=== PATIENT | female | born 1970 | race Caucasian/White ===

== ENCOUNTER 2020-05-11 14:10 | Emergency (ER) | payer MEDICAID, SELFPAY ==
[2020-05-11] VITALS (52 sets, daily range): BP systolic 116–131; BP diastolic 63–77; PULSE 77–86; RESP 11–25; TEMP 36.3–36.8; O2SAT 91–98
--- NOTE | 2020-05-11 14:00 | RT.EKG_ITS ---
APPROVED REPORT Exam: Resting ECG Patient Location: E HR:81 bpm ECG Measurements Heart Rate 81 AXIS DE 145 P 39 QRSd 91 QRS 66 QT 378 T 22 QTc 438 Conclusion Sinus rhythm...normal P axis, V-rate 60- 99
--- NOTE | 2020-05-11 14:22 | W.ED.GENAD ---
Discharge Plan Disposition Patient Disposition: HOME Condition: Improving Discharge Details Clinical Impression: Muscle spasms of neck Primary Care Provider: Jessenia Ramirez ED Provider: Claude Jorge Home Meds and New Rx's Prescriptions: Continued COVID-19 vacc,mRNA(Moderna)-PF 100 mcg/0.5 mL suspension 0.5 ml IM ONCE Qty: 0.5 RF: 0 escitalopram oxalate [Lexapro] 20 mg Tablet 40 mg PO DAILY RF: 0 Discharge Instructions Additional Instructions: Home to rest today. Continue to liberally hydrate with small, frequent sips of fluids. Provided Valium 2 mg every 6 hours if needed for spasm. Return to the ER for any acute concerns. May provide gentle massage to the area and it may respond to both heat and cold therapy. Medical Decision Making 49-year-old female presents from home via EMS with the abrupt onset above midday of intermittent right-sided neck spasms that seem to shoot to my eye. She is not had a rash. She did not injure herself and she has not recently been ill. She arrives to the ER improved following fentanyl in the ambulance with a temp of 36, blood pressure 126/77 with a pulse of 86. Differential diagnosis includes spasm, trigeminal neuralgia, atypical migraine, less likely intracranial mass or hemorrhage. Patient had IV access established, screening labs obtained, given a fluid bolus, magnesium, ketorolac, and 1 mg Ativan. HPI General Mode of arrival: EMS. Date/Time Provider Initiated Documentation: 05/11/20 14:11. Limitations to Documentation: no limitations. Information obtained by: patient and EMS. History of Present Illness 49 year old F presents to the emergency department with the chief complaint of Right-sided neck pain and spasm, described as moderate, Quality is described as stabbing, and is localized to the neck and right. Patient reports no radiation. Patient started experiencing this hour(s) and it has been constant. No relieving factors improve symptom(s), No exacerbating factors reported . Patient notes denies fever/chills, headaches, nausea/vomiting, rash and syncope. Patient did receive the following treatments prior to arrival, none Related Data Home Medications Medication Instructions Recorded Confirmed escitalopram oxalate [Lexapro] 40 mg PO DAILY 05/11/20 05/11/20 Allergies Allergy/AdvReac Type Severity Reaction Status Date / Time diphenhydramine Allergy Unverified 05/11/20 14:20 metoclopramide [From Reglan] Allergy Unverified 05/11/20 14:20 pneumococcal vaccine Allergy Unverified 05/11/20 14:20 prochlorperazine Allergy Unverified 05/11/20 14:25 [From Compazine] fluticasone AdvReac Headache Unverified 05/11/20 14:20 [From Advair Diskus] salmeterol AdvReac Headache Unverified 05/11/20 14:20 [From Advair Diskus] General Stated Complaint: Headache ARIA: 2 Review of Systems Narrative: No fever, no chills, no rash, no fall or injury. 6 systems reviewed and otherwise negative [facility] Social History Smoking/Tobacco Use Status: Former Tobacco Use Quit Date: 03/30/08 Smoking risk assessment performed?: Yes Alcohol Intake: never Substance use type: does not use Do you feel safe at home: Yes Do you feel safe in your relationship?: Yes Exam Narrative Exam Narrative: GEN: awake, alert, oriented 3. Pleasant, well groomed, interactive. HEAD: Normocephalic, atraumatic ENT: Mucous membranes moist, oropharynx unremarkable, External ear exam unremarkable EYES: PERRL, EOMI NECK: Full ROM, no meningismus. Right sternocleidomastoid spasm and tenderness CHEST/RESP: Nontender, clear to auscultation bilateral, no wheeze/rhonchi/rales CARDIOVASCULAR: RRR, no murmur, rub kg. 2+ Rad pulse bilateral ABDOMEN: Soft, nontender, no mass. +Bowel sounds EXT: Full ROM, no edema, no rash Neuro: Grossly normal neurologic exam, conversant, interactive. Psych: Speech fluent, thoughts congruent, affect normal Course Vital Signs Vital signs: Vital Signs Temperature 36.3 C L 05/11/20 14:09 Pulse 86 05/11/20 14:09 Respiratory Rate 14 05/11/20 14:09 Blood Pressure 126/77 05/11/20 14:09 Pulse Oximetry 96 05/11/20 14:09 Temperature 36.3 C L 05/11/20 14:09 Temperature Source Skin 05/11/20 14:09 Pulse 86 05/11/20 14:09 Respiratory Rate 14 05/11/20 14:09 Blood Pressure 126/77 05/11/20 14:09 Blood Pressure Position Supine 05/11/20 14:09 Pulse Oximetry 96 05/11/20 14:09 Oxygen Delivery Method Room Air 05/11/20 14:09 Oxygen Flow Rate 0 05/11/20 14:09 Pain Level 5 05/11/20 14:09
[2020-05-11 14:39] LABS: Abs Immature Grans 0.02 10^3/uL (0.0-0.06); Absolute Basophil Count 0.04 10^3/uL (0.0-0.2); Absolute Eosinophil Count 0.14 10^3/uL (0.0-0.7); Absolute Lymphocyte Count 1.94 10^3/uL (1.2-3.4); Absolute Monocyte Count 0.48 10^3/uL (0.1-0.8); Absolute Neutrophil Count 4.52 10^3/uL (1.2-6.7); Basophils % 0.6; HCT 39.4 % (36.0-46.0); HGB 12.6 g/dL (11.2-15.7); Immature Grans % 0.3; Lymphocytes % 27.2; MCH 26.7 pg (27.0-33.0); MCV 83.5 fL (80-95); MPV 8.9 fL (8.0-11.0); Monocytes % 6.7; Neutrophils % 63.2; Nucleated RBC 0 %; Platelet Count 281 10^3/uL (130-400); RBC 4.72 10^6/uL (3.93-5.22); RDW-SD 42.7 fL; WBC 7.14 10^3/uL (4.4-10.8)
[2020-05-11 14:46] LABS: Anion Gap 8.6 mmol/L (3-11); BUN 18 mg/dL (7-18); CO2 26.4 mmol/L (21.0-32.0); CREATININE 0.7 mg/dL (0.55-1.02); Chloride 105 mmol/L (98-107); Glucose 111 mg/dL (74-106); Potassium 4.2 mmol/L (3.5-5.1); Sodium 140 mmol/L (136-145)
[2020-05-11] MEDS: Ketorolac 30 MG/ML VIAL IVP (14:53)
[2020-05-11] MEDS: LORazepam 2 MG/ML VIAL 1 MG IVP (14:56)
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
[2020-05-11] MEDS: Normal Saline 1,000 ML 1000 ML IV (15:09)
[2020-05-11] MEDS: MAGNESIUM SULFATE 1 GM/100 ML BAG IVPB (15:10)
[2020-05-11] MEDS: Ondansetron 4 MG/2 ML VIAL IVP (15:28)
[2020-05-11] MEDS: diazePAM 10 MG/2 ML SYR 5 MG IVP (16:25)
[2020-05-11] MEDS: diazePAM 2 MG TAB PO (17:54)
== END 2020-05-11 18:04 | disposition home or self-care (01) ==
PROVIDERS: Emergency Provider Emergency Medicine; PCP Family Medicine
DX: G24.3 Spasmodic torticollis (principal)
CPT/HCPCS: 36415; 80048; 93005; 96361; 96365; 96375; 99285; 70450; 85025; 93010; 99284; J1885; J2060; J2405; J3360; J3475

== ENCOUNTER 2022-03-21 21:26 | Emergency (ER) | payer MEDICAID, SELFPAY ==
[2022-03-21 21:25] VITALS: BP 171/94; PULSE 80; RESP 18; TEMP 36.4; O2SAT 99
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
[2022-03-21 22:07] LABS: Abs Immature Grans 0.02 10^3/uL (0.0-0.06); Absolute Basophil Count 0.02 10^3/uL (0.0-0.2); Absolute Eosinophil Count 0.07 10^3/uL (0.0-0.7); Absolute Monocyte Count 0.41 10^3/uL (0.1-0.8); Absolute Neutrophil Count 2.93 10^3/uL (1.2-6.7); Basophils % 0.4; Eosinophils % 1.3; HGB 11.6 g/dL (11.2-15.7); Immature Grans % 0.4; Lymphocytes % 37.8; MCH 24.6 pg (27.0-33.0); MCHC 31.4 % (32.0-36.0); MCV 79 fL (80-95); MPV 9.8 fL (8.0-11.0); Monocytes % 7.4; Neutrophils % 52.7; Platelet Count 343 10^3/uL (130-400); RBC 4.71 10^6/uL (3.93-5.22); RDW 15.4 % (11.7-14.6); RDW-SD 44.2 fL; WBC 5.55 10^3/uL (4.4-10.8)
[2022-03-21] MEDS: fentaNYL 100 MCG/2 ML VIAL 50 MCG IVP (22:13)
[2022-03-21] MEDS: ACETAMINOPHEN 1,000 MG/100 ML BTL 400 MG IVPB (22:13)
[2022-03-21 22:21] LABS: ALT 53 U/L (14-59); AST 31 U/L (15-37); Albumin 4.1 g/dL (3.4-5.0); Alkaline Phosphatase 92 U/L (46-116); Anion Gap 10.9 mmol/L (3-11); BUN 13 mg/dL (7-18); Bilirubin, Total 0.2 mg/dL (0.2-1.0); CO2 27.1 mmol/L (21.0-32.0); CREATININE 0.7 mg/dL (0.55-1.02); Chloride 103 mmol/L (98-107); Estimated GFR 103.35 (mL/min/1.73m2); Glucose 134 mg/dL (74-106); Sodium 141 mmol/L (136-145); Total Protein 7.9 g/dL (6.4-8.2)
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
[2022-03-21 22:25] LABS: Potassium 2.7 mmol/L (3.5-5.1)
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
--- NOTE | 2022-03-21 22:49 | NUR.NOTE ---
Nursing Note: C-collar removed per doc
[2022-03-21 23:12] VITALS: BP 146/80; PULSE 81; RESP 16; O2SAT 97
== END 2022-03-21 23:47 | disposition home or self-care (01) ==
PROVIDERS: Emergency Provider Emergency Medicine; PCP Family Medicine
DX: S30.1XXA Contusion of abdominal wall, initial encounter (principal); V47.6XXA Car passenger injured in collision with fixed or stationary object in traffic accident, initial encounter; Y92.410 Unspecified street and highway as the place of occurrence of the external cause
CPT/HCPCS: 73562; 74177; 80053; 96374; 96375; 99285; 71260; 72125; 85025; 99284; J0131; J3010

== ENCOUNTER 2022-08-12 11:57 | Emergency (ER) | payer OTHER, SELFPAY ==
[2022-08-12] VITALS (19 sets, daily range): BP systolic 166–192; BP diastolic 89–105; PULSE 73–82; RESP 15–20; TEMP 37.1; O2SAT 97–98
--- NOTE | 2022-08-12 12:30 | DI.RAD_ITS ---
Exam(s) XR KNEE LT 4V AP,LAT,CHAKA,PAT EXAM: XR KNEE LT 4V AP,LAT,CHAKA,PAT CLINICAL HISTORY: pain, injury. TECHNIQUE: 2D digital imaging was performed of the left knee. Four images were obtained. Merchant, AP, lateral and PA tunnel views were obtained. COMPARISON: CR,XR XR KNEE LT 3V AP,LAT,CHAKA from 03/21/2022 FINDINGS: BONES: No acute fracture is present. No bony destructive lesion is seen. JOINTS: The knee is normally aligned. No joint effusion is seen. SOFT TISSUE: Normal. IMPRESSION: Normal radiographs of the left knee. DATA REPOSITORY: RADIATION DOSE DELIVERED:
--- NOTE | 2022-08-12 13:15 | RT.EKG_ITS ---
APPROVED REPORT Exam: Resting ECG Reason for Exam: ? syncope, dizzy Patient Location: E HR:77 bpm ECG Measurements Heart Rate 77 AXIS MT 130 P 9 QRSd 93 QRS 68 QT 413 T 46 QTc 468 Conclusion Sinus rhythm...normal P axis, V-rate 60- 99
[2022-08-12 13:50] LABS: Abs Immature Grans 0.01 10^3/uL (0.0-0.06); Absolute Basophil Count 0.02 10^3/uL (0.0-0.2); Absolute Lymphocyte Count 2.02 10^3/uL (1.2-3.4); Absolute Monocyte Count 0.37 10^3/uL (0.1-0.8); Absolute Neutrophil Count 2.62 10^3/uL (1.2-6.7); Basophils % 0.4; Eosinophils % 1.9; HCT 33.8 % (36.0-46.0); HGB 10.5 g/dL (11.2-15.7); Immature Grans % 0.2; Lymphocytes % 39.3; MCH 24.2 pg (27.0-33.0); MCHC 31.1 % (32.0-36.0); MCV 78 fL (80-95); MPV 8.6 fL (8.0-11.0); Monocytes % 7.2; Platelet Count 293 10^3/uL (130-400); RBC 4.33 10^6/uL (3.93-5.22); RDW 16.3 % (11.7-14.6); RDW-SD 46.8 fL; WBC 5.14 10^3/uL (4.4-10.8)
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
[2022-08-12 14:24] LABS: ALT 44 U/L (14-59); AST 42 U/L (15-37); Albumin 3.5 g/dL (3.4-5.0); Alkaline Phosphatase 73 U/L (46-116); BUN 9 mg/dL (7-18); Bilirubin, Total 0.3 mg/dL (0.2-1.0); CREATININE 0.7 mg/dL (0.55-1.02); Calcium 8.8 mg/dL (8.5-10.1); Chloride 104 mmol/L (98-107); Estimated GFR 103.35 (mL/min/1.73m2); Glucose 114 mg/dL (74-106); Magnesium 1.9 mg/dL (1.8-2.4); Potassium 3.4 mmol/L (3.5-5.1); Sodium 138 mmol/L (136-145); TSH (W/Ref FT4) 1.52 uIU/mL (0.36-3.74); Total Protein 7.1 g/dL (6.4-8.2); Troponin I < 50 ng/L (<or=60)
--- NOTE | 2022-08-12 16:00 | DI.CT_ITS ---
Exam(s) CT HEAD WO EXAM: CT HEAD WO CLINICAL HISTORY: headache, HTN. TECHNIQUE: Imaging Protocol: Axial computed tomography images with coronal and sagittal reformatted images were created and reviewed COMPARISON: CT CT HEAD WO from 05/11/2020 FINDINGS: Ventricles and Extra axial spaces: Normal in size and morphology for the patient's age. Hemorrhage: None. Cerebral parenchyma: No evidence of an acute territorial infarct. There are old lacunar infarcts in the basal ganglia bilaterally. Midline shift: None. Brainstem/Cerebellum: Normal. Calvarium: Normal. Visualized Paranasal sinuses/Mastoids: Clear. Soft Tissues: Unremarkable. IMPRESSION: 1. No acute intracranial process. 2. Findings were discussed with the emergency department at 5:06 p.m. on 08/12/2022. RADIATION DOSE DELIVERED: 777.55mGy.cm Total DLP DATA REPOSITORY: All CT scans at this facility are submitted to the National Radiology Data Registry (NRDR) Dose Index Registry (DIR) with the [employer] (ACR). RADIATION OPTIMIZATION: All CT scans at this facility use at least one of these dose optimization te chniques: automated exposure control; mA and/or kV adjustment per patient size (includes targeted exa ms where dose is matched to clinical indication); or iterative reconstruction.
--- NOTE | 2022-08-12 16:15 | RT.EKG_ITS ---
APPROVED REPORT Exam: Resting ECG Reason for Exam: chest pain Patient Location: E HR:75 bpm ECG Measurements Heart Rate 75 AXIS NJ 129 P 4 QRSd 91 QRS 49 QT 414 T 21 QTc 462 Conclusion Sinus rhythm...normal P axis, V-rate 60- 99 Low voltage, precordial leads...precordial leads <1.0mV
[2022-08-12 16:31] LABS: Troponin I < 50 ng/L (<or=60)
[2022-08-12] MEDS: traMADol 50 MG TAB PO (16:41)
[2022-08-12] MEDS: Ibuprofen 400 MG TAB PO (16:43)
[2022-08-12] MEDS: Lisinopril 10 MG TAB PO (16:57)
--- NOTE | 2022-08-12 17:26 | W.EDPROG ---
Date of service: 08/12/22 Time of Service: 17:15 Medical Decision Making Patient signed out to me pending monitor blood pressure due to hypertension and overall reassessment. Patient chief complaint of right knee injury but also been having dizzy spells. Report received that patient had negative CT imaging of head and second troponin negative along with work-up otherwise being nondiagnostic. 1814-reassessed patient and patient still states anxiety. Rechecked her blood pressure manually and was still 190/95. Discussed with patient potential syncopal episode was secondary to hypertensive emergency but also considered would be severe acute knee pain. Patient at this time does not want to be admitted for further observation for her hypertension. We will try 5 mg of amlodipine and monitor patient. 2029-reassessed patient again and patient states that she is feeling better now. Blood pressure now 170/90. Given initial pressure of 200/100 or higher I do feel this is an appropriate reduction in the short-term. We will place patient on 5 mg amlodipine and placed patient on urgent follow-up with primary care provider preferably in the next 2 to 3 days. After discussion of diagnosis and plan of care patient has no further needs, questions, or concerns and states clear understanding to return to the emergency department for any worsening symptoms. This documentation was generated using [employer] dictation system, please disregard any oddities of phrase or misspellings. Exam Const General: cooperative, no acute distress and not ill appearing Orientation: alert, awake and oriented x3 HENMT Mouth: moist mucous membranes Resp Effort & Inspection: normal respiratory effort, able to speak in complete sentences and no respiratory distress Cardio Rate: regular rate Rhythm: regular rhythm Heart Sounds: S1 normal and S2 normal Pulses: normal peripheral pulses Skin General skin exam: no rashes or lesions noted Neuro General: patient alert, patient awake, patient oriented x3, moves all extremities and no focal motor deficits Sensory Exam: no sensory deficits noted Sign Out Sign Out Data: Sign Out Comment: Follow-up repeat BP post lisinopril. Reassess patient for disposition. If improved and asymptomatic, consider discharge on lisinopril. Last updated by Bennett Savage MD at 08/12/22 17:19 Discharge Plan Disposition Patient Disposition: Home Condition: Improving Discharge Details Clinical Impression: Anemia, Dizziness, Injury of right knee, Hypertensive emergency Primary Care Provider: Jessenia Ramirez ED Provider: Eris Alfaro Home Meds and New Rx's Prescriptions: New amlodipine 5 mg tablet 5 mg PO DAILY Qty: 20 0RF Continued COVID-19 vacc,mRNA(Moderna)-PF 100 mcg/0.5 mL suspension 0.5 ml IM ONCE Qty: 0.5 0RF lidocaine [Lidoderm] 5 % adhesive patch,medicated 1 patch topical DAILY PRNQty: 15 0RF Rx Instructions: leave on most painful area for up to 12 hrs acetaminophen 500 mg Tablet 1,000 mg PO Q8H lorazepam 0.5 mg tablet 0.5 mg PO QHS Patient Comments: TAKE 1-2 TABLETS BY MOUTH EVERY EVENING AT BEDTIME IF NEEDED trazodone 150 mg tablet 150 mg PO QHS Patient Comments: take 1 tablet by mouth once daily at bedtime omeprazole 20 mg capsule,delayed release(DR/EC) 20 mg PO DAILY Patient Comments: take 1 capsule by mouth every evening ibuprofen 600 mg Tablet 600 mg PO Q8H bupropion HCl 150 mg tablet extended release 24 hr 150 mg PO DAILY Patient Comments: take 1 tablet by mouth daily aripiprazole 2 mg tablet 2 mg PO DAILY Patient Comments: take 1 tablet by mouth once daily cyclobenzaprine 10 mg tablet 10 mg PO DAILY escitalopram oxalate [Lexapro] 20 mg Tablet 40 mg PO DAILY Discharge Instructions Instructions: Swollen Knee Joint (ED), Hypertension (ED), Anemia (ED) Additional Instructions: Please keep your follow-up appointment with orthopedics for further evaluation of your knee pain. Given you did have significant hypertension today we are starting you on a blood pressure medication. Please take this daily and follow-up with primary care provider preferably the next 2 to 3 days for reassessment of your blood pressure. If you have any new or significant worsening of symptoms return immediately to the emergency department for recheck. Stand Alone Forms: Work Release Referrals: Primary Care Provider [Outside] - 3 days
[2022-08-12] MEDS: amLODIPine 5 MG TAB PO (19:18)
--- NOTE | 2022-08-12 20:54 | NUR.NOTE ---
Referral to Care Management to get pcp f/u appt. in 2-3 days for hypertensive urgency with Dr Radu Oliver in [facility].Nursing Note:
== END 2022-08-12 20:46 | disposition home or self-care (01) ==
PROVIDERS: Student in an Organized Health Care Education/Training Program; Emergency Provider Nurse Practitioner Family; PCP Family Medicine
DX: R42 Dizziness and giddiness (principal); D64.9 Anemia, unspecified; S89.92XA Unspecified injury of left lower leg, initial encounter; I10 Essential (primary) hypertension; W19.XXXA Unspecified fall, initial encounter; R51.9 Headache, unspecified
CPT/HCPCS: 80053; 93005; 99285; 70450; 73564; 83735; 84443; 84484; 85025; 93010; 99284

== ENCOUNTER 2024-07-11 14:48 | Outpatient (CLI) | payer OTHER, SELFPAY ==
--- NOTE | 2024-07-11 09:07 | DI.RAD_ITS ---
Exam(s) XR KNEE LT 3V AP,LAT,CHAKA EXAM: XR KNEE LT 3V AP,LAT,CHAKA CLINICAL HISTORY: painful L TKR. TECHNIQUE: 2D digital imaging was performed. COMPARISON: CR XR KNEE 4 VIEW LEFT from 09/26/2022 CR XR KNEE 3 VIEW LEFT from 09/22/2023 FINDINGS: 3 views Position alignment of the components of the left knee prosthesis remain stable with no evidence of fr acture or loosening no radiographic evidence of osteomyelitis. There is no gas in soft tissues. IMPRESSION: Stable satisfactory appearance when compared to images of 09/22/2023. DATA REPOSITORY: RADIATION DOSE DELIVERED:
== END 2024-07-11 14:49 | disposition home or self-care (01) ==
LOC: DIORS 14:48
PROVIDERS: PCP Family Medicine; Visit Provider Physician Assistant
DX: Z96.652 Presence of left artificial knee joint; M25.562 Pain in left knee
CPT/HCPCS: 73562

== ENCOUNTER 2024-08-02 00:05 | Outpatient (CLI) | payer OTHER, SELFPAY ==
--- NOTE | 2024-08-02 07:30 | DI.NM_ITS ---
Exam(s) NM BONE SCAN 3 PHASE EXAM: NM BONE SCAN 3 PHASE CLINICAL HISTORY: ? LOOSENING knee replacement,painful total knee replacement,T84.82xa. TECHNIQUE: Injected Dose: 27 mCi Tc-99m MDP COMPARISON: CR XR KNEE 3 VIEW LEFT from 11/04/2023 CR XR KNEE 3 VIEW LEFT from 12/02/2023 CR XR KNEE LT 3V AP,LAT,CHAKA from 07/11/2024 FINDINGS: Perfusion phase: There is relatively symmetric flow demonstrated both knees. Blood Pool phase: There is some increased activity noted subjacent to the mid-lateral aspect of the t ibial plateau component of the prosthesis. There is no significant abnormal uptake around the femoral component Incidentally noted is mild uptake in the medial compartment of the opposite-right knee consistent wit h some degenerative change at this level. Delayed images: These images reveal increased radiopharmaceutical activity at the level the bone-pros thesis tibial interface. IMPRESSION: 1. Abnormal increased radiopharmaceutical uptake at the bone-prosthesis interface of the tibial compo nent, suggesting aseptic loosening of the prosthesis.. DATA REPOSITORY:
--- NOTE | 2024-08-02 07:30 | DI.CT_ITS ---
Exam(s) CT LOWER EXTREMITY LT WO EXAM: CT LOWER EXTREMITY LT WO CLINICAL HISTORY: ? LOOSENING TKR,painful lt total knee replacement,T84.82xa,[id number]. TECHNIQUE: Imaging Protocol: Axial computed tomography images with coronal and sagittal reformatted images were created and reviewed. CONTRAST MATERIAL: Intravenous: None COMPARISON: CR XR KNEE LT 3V AP,LAT,CHAKA from 07/11/2024 FINDINGS: OSSEOUS: Components of the left knee prosthesis appears satisfactory z/stable. There is no evidence of fracture or obvious loosening of the components of the prosthesis. There is no radiographic evide nce of osteomyelitis. No bone dehiscence. Small amount of increased joint fluid noted IMPRESSION: No evidence of obvious loosening of the prosthesis components. RADIATION DOSE DELIVERED: 157.63mGy.cm Total DLP DATA REPOSITORY: All CT scans at this facility are submitted to the National Radiology Data Registry (NRDR) Dose Index Registry (DIR) with the [employer] (ACR). RADIATION OPTIMIZATION: All CT scans at this facility use at least one of these dose optimization te chniques: automated exposure control; mA and/or kV adjustment per patient size (includes targeted exa ms where dose is matched to clinical indication); or iterative reconstruction.
[2024-08-02 08:03] LABS: HCT 40.1 % (36.0-46.0); HGB 13.3 g/dL (11.2-15.7); MCH 28.4 pg (27.0-33.0); MCHC 33.2 % (32.0-36.0); MCV 86 fL (80-95); MPV 9.1 fL (8.0-11.0); Platelet Count 264 10^3/uL (130-400); RBC 4.68 10^6/uL (3.93-5.22); RDW-SD 40.3 fL; WBC 5.38 10^3/uL (4.4-10.8)
[2024-08-02 08:04] LABS: ESR 7 mm/hr (0-30)
[2024-08-02 08:17] LABS: C-Reactive Protein < 0.50 mg/dL (<or=0.5)
== END 2024-08-02 00:25 ==
LOC: DI 00:05
PROVIDERS: PCP Family Medicine; Visit Provider Student in an Organized Health Care Education/Training Program
DX: T84.82XA Fibrosis due to internal orthopedic prosthetic devices, implants and grafts, initial encounter (principal); T84.84XA Pain due to internal orthopedic prosthetic devices, implants and grafts, initial encounter; Z96.652 Presence of left artificial knee joint
CPT/HCPCS: 85027; 85652; 73700; 78315; 86140

== ENCOUNTER 2025-02-02 10:45 | Emergency (ER) | payer MEDICAID, SELFPAY ==
[2025-02-02 10:53] VITALS: BP 154/101; PULSE 94; RESP 20; TEMP 36.7; O2SAT 97
[2025-02-02 10:57] VITALS: BP 154/101; PULSE 94; RESP 20; TEMP 36.7; O2SAT 97
[2025-02-02 11:23] VITALS: RESP 16
--- NOTE | 2025-02-02 11:30 | DI.RAD_ITS ---
Exam(s) XR LUMBAR SPINE COMPLETE EXAM: XR LUMBAR SPINE COMPLETE CLINICAL HISTORY: back pain, hx of DM, paresthesias down right leg. TECHNIQUE: 2D digital imaging was performed of the lumbar spine. Five images were obtained. AP, lateral, right oblique, left oblique and L5-S1 spot views were obtained. COMPARISON: CT CT THORACIC LUMBAR SPINE REC from 03/21/2022 FINDINGS: BONES: No fracture or destructive lesion. Vertebral bodies are unremarkable. No facet hypertrophy identified. DISKS: There is disc space narrowing at L4-L5. ALIGNMENT: Lumbar spinal alignment is within normal limits. No spondylolysis or spondylolisthesis. SOFT TISSUE: Atherosclerotic calcification is present. IMPRESSION: 1. There is no acute fracture or subluxation. 2. Stable degenerative changes at L4-L5. DATA REPOSITORY: RADIATION DOSE DELIVERED:
[2025-02-02] MEDS: MORPHine 4 MG/ML SYR IVP (12:43)
[2025-02-02 12:44] LABS: Abs Immature Grans 0.02 10^3/uL (0.0-0.06); HCT 39.4 % (36.0-46.0); HGB 12.4 g/dL (11.2-15.7); Immature Grans % 0.3 %; MCH 24.4 pg (27.0-33.0); MCHC 31.5 % (32.0-36.0); MCV 78 fL (80-95); MPV 9.1 fL (8.0-11.0); Platelet Count 399 10^3/uL (130-400); RBC 5.08 10^6/uL (3.93-5.22); RDW 16.1 % (11.7-14.6); RDW-SD 46.1 fL; WBC 6.69 10^3/uL (4.4-10.8)
[2025-02-02] MEDS: ACETAMINOPHEN 500 MG/50 ML BAG 200 MG IVPB (12:58)
[2025-02-02 13:12] LABS: ESR 36 mm/hr (0-30)
[2025-02-02 13:13] LABS: ALT 45 U/L (14-59); AST 35 U/L (15-37); Albumin 4.1 g/dL (3.4-5.0); Alkaline Phosphatase 85 U/L (46-116); Anion Gap 12.6 mmol/L (3-11); BUN 13 mg/dL (7-18); Bilirubin, Total 0.5 mg/dL (0.2-1.0); CO2 26.4 mmol/L (21.0-32.0); Calcium 9.5 mg/dL (8.5-10.1); Chloride 99 mmol/L (98-107); Glucose 198 mg/dL (74-106); Potassium 4.4 mmol/L (3.5-5.1); Sodium 138 mmol/L (136-145); Total Protein 8.3 g/dL (6.4-8.2)
[2025-02-02 13:15] LABS: C-Reactive Protein < 0.50 mg/dL (<or=0.5)
[2025-02-02 14:11] VITALS: BP 149/77; PULSE 96; RESP 16; O2SAT 98
--- NOTE | 2025-02-03 08:20 | W.ED.GENAD ---
Discharge Plan Disposition Patient Disposition: Home Condition: Stable Discharge Details Clinical Impression: Right lumbar radiculopathy Primary Care Provider: Jessenia Ramirez ED Provider: Nadia Cabrera Home Meds and New Rx's Prescriptions: New gabapentin [Neurontin] 100 mg capsule 100 mg PO BID Qty: 18 0RF Rx Instructions: take 1 tablet every 8 hours as needed for pain you may increase to 2 tablets every 8 hours in 2-3 days as tolerated Continued escitalopram oxalate [Lexapro] 20 mg tablet 20 mg PO DAILY lisinopril 10 mg tablet 10 mg PO DAILY acetaminophen [Tylenol Arthritis Pain] 650 mg tablet extended release 650 mg PO Q8H insulin glargine [Lantus Solostar U-100 Insulin] 100 unit/mL (3 mL) insulin pen 36 unit subcut QAM Ozempic 0.25 mg or 0.5 mg (2 mg/3 mL) pen injector 2 mg subcut QWEEK celecoxib [Celebrex] 200 mg capsule 200 mg PO BID COVID-19 vacc,mRNA(Moderna)-PF 100 mcg/0.5 mL suspension 0.5 ml IM ONCE Qty: 0.5 0RF lidocaine [Lidoderm] 5 % adhesive patch,medicated 1 patch topical DAILY PRNQty: 15 0RF Rx Instructions: leave on most painful area for up to 12 hrs lorazepam 0.5 mg tablet 0.5 mg PO QHS Patient Comments: TAKE 1-2 TABLETS BY MOUTH EVERY EVENING AT BEDTIME IF NEEDED trazodone 150 mg tablet 150 mg PO QHS Patient Comments: take 1 tablet by mouth once daily at bedtime ibuprofen 600 mg Tablet 600 mg PO Q8H aripiprazole 2 mg tablet 2 mg PO DAILY Patient Comments: take 1 tablet by mouth once daily amlodipine 5 mg tablet 5 mg PO DAILY Qty: 20 0RF prednisone 20 mg tablet 20 mg PO DAILY Discontinued cyclobenzaprine 10 mg tablet 10 mg PO DAILY Discharge Instructions Instructions: Radiculopathy (DC) Additional Instructions: Take the Neurontin as needed for discomfort as prescribed, use caution in combination with the Ativan, recommend taking them separately from each other You may gradually over the next 2 to 3 days increase the Neurontin to 2 tablets 3 times daily Use your walker with ambulation to support your right lower extremity Schedule an appointment with your PCP for Thursday for reassessment You may also use Lidoderm patches which are elgw-rya-spyerom 12 hours on 12 hours off Tylenol 500 mg every 4-6 hours do not exceed 3 g of Tylenol daily Please be reevaluated if changes in bowel or bladder, fever, chills, worsening strength or sensation change or should any new concerns arise Stand Alone Forms: Portal Information Referrals: Jessenia Ramirez [Primary Care Provider, Medicine] Discharge Data Discharge Date/Time-TO BE ENTERED AT DEPARTURE: 02/02/25 14:21 HPI General Date/Time Provider Initiated Documentation: 02/02/25 10:59. HPI Narrative: This 54-year-old female with history of hypertension, recent total knee replacement, gastric bypass presents with report of pain periodically radiating down to her right foot states it goes into her right great toe. She states it is a nerve pain . She denies any groin numbness or tingling or changes in bowel or bladder. She has any abdominal pain or flank pain states the pain is worse in the morning gradually improves over she is distracted during the day and at night the pain is worse. She states she has been on secondary to the discomfort. denies hx of IVDA, fever, or chills Related Data Home Medications Medication Instructions Recorded Confirmed lidocaine 5 % topical patch 1 patch topical DAILY PRN #15 ea 03/21/22 02/02/25 (Lidoderm) amlodipine 5 mg tablet 5 mg PO DAILY #20 tabs 08/12/22 02/02/25 aripiprazole 2 mg tablet 2 mg PO DAILY 08/12/22 02/02/25 ibuprofen 600 mg tablet 600 mg PO Q8H 08/12/22 02/02/25 lorazepam 0.5 mg tablet 0.5 mg PO QHS 08/12/22 02/02/25 trazodone 150 mg tablet 150 mg PO QHS 08/12/22 02/02/25 acetaminophen 650 mg 650 mg PO Q8H 05/10/24 02/02/25 tablet,extended release (Tylenol Arthritis Pain) escitalopram oxalate 20 mg tablet 20 mg PO DAILY 05/10/24 02/02/25 (Lexapro) lisinopril 10 mg tablet 10 mg PO DAILY 05/10/24 02/02/25 insulin glargine 100 unit/mL (3 36 unit subcut QAM 07/11/24 02/02/25 mL) subcutaneous pen (Lantus Solostar U-100 Insulin) celecoxib 200 mg capsule (Celebrex) 200 mg PO BID 08/11/24 02/02/25 semaglutide 0.25 mg or 0.5 mg (2 2 mg subcut QWEEK 08/11/24 02/02/25 mg/3 mL) subcutaneous pen injector (Ozempic) gabapentin 100 mg capsule 100 mg PO BID #18 caps 02/02/25 (Neurontin) prednisone 20 mg tablet 20 mg PO DAILY 02/02/25 02/02/25 Previous Rx's Medication Instructions Recorded lidocaine 5 % topical patch 1 patch topical DAILY PRN #15 ea 03/21/22 (Lidoderm) amlodipine 5 mg tablet 5 mg PO DAILY #20 tabs 08/12/22 gabapentin 100 mg capsule 100 mg PO BID #18 caps 02/02/25 (Neurontin) Allergies Allergy/AdvReac Type Severity Reaction Status Date / Time prochlorperazine (From Allergy Severe Other (See Unverified 02/02/25 10:58 Compazine) Comment) diphenhydramine Allergy Unknown Unverified 02/02/25 10:58 metoclopramide (From Reglan) Allergy Other (See Unverified 02/02/25 10:58 Comment) pneumococcal vaccine Allergy Other (See Unverified 02/02/25 10:58 Comment) amitriptyline AdvReac Intermediate Other (See Unverified 02/02/25 10:58 Comment) fluticasone (From Advair AdvReac Headache Unverified 02/02/25 10:58 Diskus) salmeterol (From Advair AdvReac Headache Unverified 02/02/25 10:58 Diskus) General Stated Complaint: [facility]Medical ARIA: 4 Exam Narrative Exam Narrative: alert and oriented 54 yo male presenting with reproducible pain around sciatic notch, +SLR, sensation intact and symmetrical bilateral lower extremities DTRs intact bilateral lower extremity ambulatory with antalgic gait distal pulses intact provide extremities, no abdominal tenderness, bruit or pulsatile mass. no weakness to LE bilaterally , no rashes or lesions Course Vital Signs Vital signs: Vital Signs Temperature 36.7 C 02/02/25 10:53 Pulse 94 H 02/02/25 10:53 Respiratory Rate 20 02/02/25 10:53 Blood Pressure 154/101 H 02/02/25 10:53 Pulse Oximetry 97 02/02/25 10:53 Temperature 36.7 C 02/02/25 10:57 Pulse 96 H 02/02/25 14:11 Respiratory Rate 16 02/02/25 14:11 Respiratory Effort Normal 02/02/25 11:23 Respiratory Depth Normal 02/02/25 11:23 Respiratory Pattern Normal 02/02/25 11:23 Blood Pressure 149/77 H 02/02/25 14:11 Blood Pressure Position Sitting 02/02/25 10:57 Pulse Oximetry 98 02/02/25 14:11 Oxygen Delivery Method Room Air 02/02/25 10:57 Oxygen Flow Rate 0 02/02/25 10:57 Lab/Test Results Lab/Test Results: Laboratory Tests Range/Units 02/02/25 02/02/25 12:14 12:14 WBC (4.4-10.8) 10^3/uL 6.69 RBC (3.93-5.22) 10^6/uL 5.08 Hgb (11.2-15.7) g/dL 12.4 Hct (36.0-46.0) % 39.4 MCV (80-95) fL 78 L MCH (27.0-33.0) pg 24.4 L MCHC (32.0-36.0) % 31.5 L RDW (11.7-14.6) % 16.1 H Plt Count (130-400) 10^3/uL 399 MPV (8.0-11.0) fL 9.1 Immature Gran % % 0.3 Neutrophils % % 86.7 Lymphocytes % % 11.7 Monocytes % % 1.0 Eosinophils % % 0.0 Basophils % % 0.3 Nucleated RBC % (0.0-0.3) % 0.0 Absolute Neutrophils (1.2-6.7) 10^3/uL 5.80 Absolute Lymphocytes (1.2-3.4) 10^3/uL 0.78 L Absolute Monocytes (0.1-0.8) 10^3/uL 0.07 L Absolute Eosinophils (0.0-0.7) 10^3/uL 0.00 Absolute Basophils (0.0-0.2) 10^3/uL 0.02 ESR (0-30) mm/hr 36 H Sodium (136-145) mmol/L 138 Potassium (3.5-5.1) mmol/L 4.4 Chloride (98-107) mmol/L 99 Carbon Dioxide (21.0-32.0) mmol/L 26.4 Anion Gap (3-11) mmol/L 12.6 H BUN (7-18) mg/dL 13 Creatinine (0.55-1.02) mg/dL 0.8 Est GFR (CKD-EPI 2020) (mL/min/1.73m2) 86.42 Glucose (74-106) mg/dL 198 H Calcium (8.5-10.1) mg/dL 9.5 Total Bilirubin (0.2-1.0) mg/dL 0.5 AST (15-37) U/L 35 ALT (14-59) U/L 45 Alkaline Phosphatase (46-116) U/L 85 C-Reactive Protein (<or=0.5) mg/dL < 0.50 Cancelled Total Protein (6.4-8.2) g/dL 8.3 H Albumin (3.4-5.0) g/dL 4.1 Medical Decision Making Results: X-ray of lumbar spine does not show evidence of acute abnormality did order blood work secondary to patient's history of diabetes, glucose 198, no evidence of DKA, sed rate 36 just minimally elevated CRP negative no evidence or low suspicion clinically for discitis, epidural abscess Assessment and plan: Patient with lumbar radiculopathy versus sciatica, she is on Ativan twice daily and has been on numerous opiates in the past I do not feel comfortable writing this patient for additional opioid medications. I will give her prescription for Neurontin 100 mg 3 times a day she may increase gradually if this assists with her pain. She is encouraged to take this separately from her lorazepam. She has no findings consistent with cauda equina syndrome on my assessment today. Should you have persistent pain she may be benefit from outpatient MRI imaging. She does already see PT in the outpatient setting so she is encouraged to follow-up with them. Recheck with primary care physician on Thursday return precautions reviewed and patient expressed understanding. She did receive a single dose of morphine which helped her pain return precautions reviewed and patient expressed understanding PFSH All Active Problems (Updated 02/02/25 @ 14:04 by ALBERTO Levi) Right lumbar radiculopathy (Acute) Arthrofibrosis of total knee arthroplasty (Acute) Painful total knee replacement, left (Acute) Diagnostic bupivacaine injection: 08/11/2024 Tobacco use (Acute) ERIC (obstructive sleep apnea) (Chronic) Renal cyst, left (Acute) IBS (irritable bowel syndrome) (Chronic) GERD (gastroesophageal reflux disease) (Chronic) Fatty liver (Acute) Type 1 diabetes mellitus (Acute) Dentures complicating chewing (Acute) COPD (chronic obstructive pulmonary disease) (Chronic) Anxiety and depression (Chronic) Medical History History of pyelonephritis Melena Hypertensive disorder Clostridium difficile infection Migraine Abdominal hernia Surgical History History of total left knee replacement (TKR) (08/2023) History of gastric bypass Social History Smoking/Tobacco Use Status: Former Tobacco Use Quit Date: 03/30/08 Smoking risk assessment performed?: Yes Alcohol Intake: current Alcohol Intake frequency: other Alcohol type: hard liquor Drug use: Never Substance use type: does not use Details: Pt had 2 shots of alcohol prior to the accident Do you feel safe at home: Yes Do you feel safe in your relationship?: Yes
== END 2025-02-02 14:21 | disposition home or self-care (01) ==
PROVIDERS: Emergency Provider Physician Assistant; PCP Family Medicine
DX: M54.16 Radiculopathy, lumbar region (principal)
CPT/HCPCS: 99284 ×2; 96374; 96375; 80053; 85652; 72110; 85025; 86140; J0131; J2270